=== PATIENT | male | born 1965 | race Caucasian/White ===

== ENCOUNTER 2019-03-26 05:02 | Observation (INO) ==
--- NOTE | 2019-02-22 08:29 | PAT Medication Instructions ---
Medication Instructions Date of Service February 22, 2019 Home Medications acetaminophen [Tylenol Extra Strength] 1,000 mg PO QID PRN cholecalciferol (vitamin D3) [Vitamin D3] 5,000 unit PO QAM duloxetine 60 mg PO QAM multivitamin 1 tab PO QAM naproxen sodium [Aleve] 440 mg PO BID PRN tramadol 50 - 100 mg PO Q4H PRN ASK your surgeon for instructions naproxen sodium [Aleve] 440 mg PO BID PRN DO NOT take the morning of surgery cholecalciferol (vitamin D3) [Vitamin D3] 5,000 unit PO QAM multivitamin 1 tab PO QAM Take morning of surgery With a small sip of water, OTHERWISE NOTHING TO EAT OR DRINK AFTER MIDNIGHT: acetaminophen [Tylenol Extra Strength] 1,000 mg PO QID PRN (okay to take up to 4 hours prior to surgery if needed) duloxetine 60 mg PO QAM tramadol 50 - 100 mg PO Q4H PRN (okay to take up to 4 hours prior to surgery if needed) Take evening before surgery acetaminophen [Tylenol Extra Strength] 1,000 mg PO QID PRN (if needed) tramadol 50 - 100 mg PO Q4H PRN (if needed) Other Notes If you have any questions please call us at [phone] or [phone] or [phone] or [phone]
--- NOTE | 2019-02-22 10:58 | Anesthesiology Consultation ---
Date of Service February 22, 2019 Assessment & Plan (1) Encounter for pre-operative examination: Heavy ETOH use: *Typically 4 beers/day a few times a week but does rarely have days in which patient will drink 12 beers/day (also has occasional days where he states he has no ETOH). Rare morning drinking; typically afternoon/evening drinking. Patient states that he will have no issue with being NPO/no ETOH use AM DOS* Chart Review Chart Review: Acceptable Risk for Surgery and Patient seen in Pre Admission Testing Teaching & Discussion Pre-Anesthesia Teaching/Discussion Notes: Instructed NPO after midnight before surgery,except medications with 15 cc of water. Medication instructions provided according to the PAT guidelines. History Surgery Operation Date: 03/26/19 07:00 Proposed Procedures p Left Anterior Total Hip Arthroplasty - Jake Lacy DO Height/Weight Height: 5 ft 11 in Weight: 126 kg Allergies Allergy/AdvReac Type Severity Reaction Status Date / Time No Known Allergies Verified 02/19/19 15:41 Medications Home Medications Medication Instructions Recorded Confirmed Last Taken acetaminophen [Tylenol Extra 1,000 mg PO QID PRN 02/19/19 02/22/19 Unknown Strength] cholecalciferol (vitamin D3) 5,000 unit PO QAM 02/19/19 02/22/19 Unknown [Vitamin D3] duloxetine 60 mg PO QAM 02/19/19 02/22/19 Unknown multivitamin 1 tab PO QAM 02/19/19 02/22/19 Unknown naproxen sodium [Aleve] 440 mg PO BID PRN 02/19/19 02/22/19 Unknown tramadol 50 - 100 mg PO Q4H PRN 02/19/19 02/22/19 Unknown tramadol 50 mg tablet 50 mg PO Q6H PRN #40 tab 02/22/19 02/22/19 Unknown Past Medical History Medical History Obesity Osteoarthritis Peripheral neuropathy reason for duloxetine per patient Sleep apnea CPAP HS Exercise / Class Metabolic Activity II 4-5 Yardwork/Stairs/Walk up hill (one flight of stairs (no chest pain/no sob)) Past Family History Family History Grandmother (Paternal) Family history of diabetes mellitus Grandmother (Maternal) Family history of diabetes mellitus Uncle Family hx of colon cancer Uncle Family hx of colon cancer Past Surgical History Surgical History History of back surgery LUMBAR AREA History of colonoscopy X 2 History of esophagogastroduodenoscopy (EGD) History of tooth extraction WISDOM TEETH History of undescended testicle S/P SURGICAL REPAIR Past Anesthesia History No Hx of Anesthesia Complications and No Family Hx of Anesthesia Complications History of PONV No Hx of PONV and No Hx of Motion Sickness Social History Smoking Status: Never smoker tobacco type: smokeless tobacco Do You Dip or Chew Tobacco: Yes (1 POUCH PER 2-3 DAYS X 20 YRS/ ADVISED NPO AM DOS ) Hx Alcohol Use: Yes Alcohol type: beer alcohol intake frequency: a few times a week (*Typically 4 beers/day a few times/week but does rarely have days in which patient will drink 12 beers/day. Rare morning drinking;typically afternoon/evening drinking*) Hx Substance Use: No Review of Systems Patient denies chest pain, shortness of breath, dyspnea on exertion, reflux, c ough, wheezing, palpitations. Physical Exam Vital Signs VITALS BP 133/86 P 74 TEMP 98.9 SP02 97%RA RESP 16 PHYSICAL Full neck and c-spine range of motion. Full TMJ range of motion. TMD 4 finger breaths Mallampati Score 2 Dentition: intact, several crowns on molars Lungs: clear throughout to auscultation Cardiac: regular rate and rhythm, no murmurs noted Spine: normal Carotid arteries: negative bruit Extremities: no edema Short neck. Testing Laboratory Results 02/22/19 11:25 02/22/19 11:25 PT 10.9 Seconds (9.0-12.0) 02/22/19 11:25 INR 1.1 (0.9-1.1) 02/22/19 11:25 APTT 25.7 Seconds (21.0-31.0) 02/22/19 11:25 Blood Type A Positive 02/22/19 11:25 Antibody Screen NEGATIVE 02/22/19 11:25 Electrocardiogram Date: 02/22/19 Findings: + NSR @ (73) Chest X-Ray Date: 02/22/19 Findings: + NAD
--- NOTE | 2019-02-22 12:04 | XRay Report ---
XR chest Pre-admission PA/Lat CLINICAL HISTORY: Preoperative evaluation. COMPARISON STUDY: No previous studies for comparison. FINDINGS: Lung volumes are normal. Lungs are clear. There is no pneumothorax or pleural effusion. Car diac size is normal. Mediastinal contours are normal. There is no evidence for pulmonary edema. IMPRESSION: No acute cardiopulmonary findings. Electronically signed by: Cornelio Hogan M.D. 02/22/2019 12:03 PM
[2019-02-22 13:26] LABS: Basophils # (auto) 0.02 K/uL (0-0.2); Basophils % (auto) 0.4 %; Eosinophils # (auto) 0.07 K/uL (0-0.5); Eosinophils % (auto) 1.2 %; Hematocrit (blood only) 43.7 % (42-52); Immature Granulocytes # (auto) 0.01 K/uL (0.00-0.02); Immature Granulocytes % (auto) 0.2 %; Lymphocytes # (auto) 1.77 K/uL (1.2-3.4); Lymphocytes % (auto) 31.1 %; Mean Corpuscular Hemoglobin 30.7 pg (25-34); Mean Corpuscular Hgb Conc 34.3 g/dL (32-36); Mean Corpuscular Volume 89.5 fL (80-100); Mean Platelet Volume 11.5 fL (7.4-10.4); Monocytes # (auto) 0.42 K/uL (0.11-0.59); Monocytes % (auto) 7.4 %; Neutrophils # (auto) 3.41 K/uL (1.4-6.5); Neutrophils % (auto) 59.7 %; Platelet Count 212 K/uL (130-400); RDW Coefficient of Variation 12.9 % (11.5-14.5); RDW Standard Deviation 42.4 fL (36.4-46.3); Red Blood Count 4.88 M/uL (4.7-6.1)
[2019-02-22 13:38] LABS: BUN Creatinine Ratio 17.4 (10-20); Calcium 9.6 mg/dl (8.5-10.1); Creatinine Clr Calc Pharmacy 128.4 ml/min; Est GFR (African American) 111.2; Potassium 4.3 mmol/L (3.5-5.1)
[2019-02-22 13:40] LABS: INR 1.1 (0.9-1.1); Partial Thromboplastin Ratio 0.9; Partial Thromboplastin Time 25.7 Seconds (21.0-31.0); Prothrombin Time 10.9 Seconds (9.0-12.0)
--- NOTE | 2019-03-25 16:13 | History & Physical Report ---
Date of Service March 25, 2019 Assessment & Plan (1) Avascular necrosis of bone of left hip: We will proceed with a left anterior total hip arthroplasty. Postoperatively he will be placed on aspirin for DVT prophylaxis. He will be kept overnight in the hospital for postoperative medical management. He plans to use [facility] in [place] upon discharge. Present on Admission?: Yes History of Present Illness Chief Complaint: Avascular necrosis of the left hip Primary Care Provider: Patricia Torres is a pleasant 53-year-old male who has been dealing with chronic increasing left hip and groin pain. MRI and clinical examination have been diagnostic for avascular necrosis of the left hip. After failing conservative treatment, he has elected to proceed with a left anterior total hip arthroplasty. Allergies Allergy/AdvReac Type Severity Reaction Status Date / Time No Known Allergies Verified 02/19/19 15:41 Home Medications Home Medications Medication Instructions Recorded Confirmed Type acetaminophen [Tylenol Extra 1,000 mg PO QID PRN 02/19/19 02/22/19 History Strength] cholecalciferol (vitamin D3) 5,000 unit PO QAM 02/19/19 02/22/19 History [Vitamin D3] duloxetine 60 mg PO QAM 02/19/19 02/22/19 History multivitamin 1 tab PO QAM 02/19/19 02/22/19 History naproxen sodium [Aleve] 440 mg PO BID PRN 02/19/19 02/22/19 History tramadol 50 - 100 mg PO Q4H PRN 02/19/19 02/22/19 History tramadol 50 mg tablet 50 mg PO Q6H PRN #40 tab 02/22/19 02/22/19 Rx tramadol 50 mg tablet 50 mg PO Q6H PRN #60 tab 03/16/19 Rx Past Med/Surg History Medical History Obesity Osteoarthritis Peripheral neuropathy reason for duloxetine per patient Sleep apnea CPAP HS Surgical History History of back surgery LUMBAR AREA History of colonoscopy X 2 History of esophagogastroduodenoscopy (EGD) History of tooth extraction WISDOM TEETH History of undescended testicle S/P SURGICAL REPAIR Family History Family history of diabetes mellitus Grandmother (Maternal) Family history of diabetes mellitus Uncle Family hx of colon cancer Uncle Family hx of colon cancer Social History Preferred Language: Tanzanian Communication Ability: Effective 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 Beliefs That Will Affect Care: None Current Living Situation: Spouse and Family Feels Safe at Home: Yes Smoking Status: Never smoker Tobacco Type: smokeless tobacco ; Second Hand Exposure: No ; Hx Alcohol Use: Yes Alcohol type: beer Hx Substance Use: No Review of Systems All systems reviewed & are unremarkable except as noted in HPI & below Physical Exam Constitutional: WD/WN, vitals as above Eyes: PERRL, conjunctivae normal, anicteric sclerae ENMT: external ear and nose normal, oropharynx normal Neck: trachea midline, no thyromegaly Respiratory: normal respiratory effort Cardiovascular: RRR, no murmur, no edema Gastrointestinal (Abdomen): normal bowel sounds, soft, nontender, no hepatosplenomegaly Musculoskeletal: Physical examination of the left hip reveals decreased range of motion with flexion, internal and external rotation. There is significant groin pain with forced internal rotation of the hip his leg lengths are essentially equal. Psychiatric: A+Ox3, euthymic affect Results & Data Diagnostic Findings MRI of the left hip shows mild arthritis but large area of avascular necrosis.
[2019-03-26] MEDS ORDERED: TRANEXAMIC ACID 1,000 MG **IV Pre-op IV SCH (06:00)
[2019-03-26] MEDS ORDERED: TRANEXAMIC ACID 1,000 MG **IV Intra-op IV SCH (06:00)
[2019-03-26] MEDS ORDERED: ROPIVACAINE 0.5% HCL/PF 150 MG, BUPIVACAINE 0.5% MPF 30 ML, EPINEPHrine 30MG/30ML (OR U... INSTIL SCH (06:00)
[2019-03-26] MEDS ORDERED: LR 500ML BOLUS, THEN 15ML/HR IV SCH (06:00)
[2019-03-26] MEDS ORDERED: ACETAMINOPHEN 500 MG TAB PO SCH (06:00)
[2019-03-26] MEDS ORDERED: LR 60ML/HR IV SCH (06:00)
[2019-03-26] MEDS ORDERED: CEFAZOLIN 3000MG 72.5 ML IV SCH (06:00)
[2019-03-26] MEDS ORDERED: GABAPENTIN 900 MG DOSE PO SCH (06:00)
[2019-03-26] MEDS ORDERED: dexAMETHasone 4 MG TAB PO SCH (06:00)
[2019-03-26] MEDS ORDERED: FAMOTIDINE 20 MG TAB PO SCH (06:00)
[2019-03-26] MEDS ORDERED: ORTHO JOINT ANESTHETIC ONE (06:27)
[2019-03-26] MEDS ORDERED: BUPIVACAINE 0.5 % 5 MG/1 ML PF 10ML VIAL ONE (06:28)
[2019-03-26] MEDS ORDERED: fentaNYL citrate 100 MCG/2 ML VIAL ONE (06:37)
[2019-03-26] MEDS ORDERED: MIDAZOLAM HCL 1 MG/ML 2ML VIAL ONE ×2 (06:37)
--- NOTE | 2019-03-26 06:44 | History & Physical Bridge Note ---
Date of Service March 26, 2019 History & Physical Bridge Note I have examined the patient, reviewed the History & Physical and in the interval since the performance of the History & Physical I have noted the following changes of clinical significance: no changes noted
[2019-03-26] MEDS ORDERED: fentaNYL citrate 100 MCG/2 ML VIAL IV PRN (07:14)
[2019-03-26] MEDS ORDERED: ONDANSETRON INJ 2 MG/ML 2 ML VIAL IV PRN ×2 (07:14→10:43)
[2019-03-26] MEDS ORDERED: PHENYLEPHRINE 100MCG/ML 5ML SYR IV PRN (07:14)
[2019-03-26] MEDS ORDERED: ATROPINE SULFATE 0.1 MG/ML 10ML SYR IV PRN (07:14)
[2019-03-26] MEDS ORDERED: MEPERIDINE HCL 25 MG/ML CARP IV PRN (07:14)
[2019-03-26] MEDS ORDERED: LABETALOL HCL IV 5 MG/ML 20ML IV PRN (07:14)
[2019-03-26] MEDS ORDERED: ePHEDrine sulfate 50 MG/ML AMP IV PRN (07:14)
[2019-03-26] MEDS ORDERED: HYDROmorphone INJ 2 MG/ML SYR/VIAL IV PRN (07:22)
--- NOTE | 2019-03-26 08:36 | Operative Report ---
PG Post Operative Report Pre & Post Diagnosis Operation Date: 03/26/19 07:00 Pre-Op Diagnosis: Left Hip avascular necrosis Post-Op Diagnosis: Left Hip avascular necrosis I identified the patient and participated in the time-out.: Yes Procedure Operation Date: 03/26/19 07:00 Actual Procedures p Left Anterior Total Hip Arthroplasty, Uncemented(Left) - Jake Lacy DO Surgeon Jake Lacy DO Drafter Mechanical Jake Lopez PAC Estimated Blood Loss 400 Findings Consistent with Post-Op Diagnosis Specimens Left femoral head Complications none Disposition Disposition: Recovery Room Indications 80 is a pleasant 53-year-old male who presented my office with increasing left hip pain. MRI and clinical examination were diagnostic for avascular necrosis of the left hip. After failing conservative treatment, he elected proceed with a left total hip arthroplasty. Description of Procedure Implants used Biomet Taperloc total hip arthroplasty system with a size 13 standard offset Taperloc stem, a 50 mm G7 cup with a 25mm screw, an E1 polyethylene liner, a 36 mm ceramic head with a +0 neck. Patient arrived at the hospital for the above procedure. They were seen in the preoperative holding area and the operative extremity was identified and signed. They were given a spinal anesthetic. They were given a preoperative antibiotic and TXA. They were taken back To the operating room and laid on the table in the supine position. The leg was brought out through a Puristst leg positioner. The hip was then prepped and draped in sterile fashion. A timeout was done and the patient and the operative extremity was properly identified. An anterior approach was used. Dissection was taken down through the fascia and the tensor muscle belly was retracted laterally and the rectus was retracted medially. The circumflex vessels were identified and ligated. The capsule was then incised and tagged for later repair. The femoral neck was then cut and the femoral head was removed. The acetabulum was exposed. Time was spent doing a complete circumferential labral release. Sequential reaming of the acetabulum up to a size 49 reamer was done. Final reamings were done under fluoroscopy to ensure appropriate version. A Biomet 50 mm G7 cup was then impacted into place. A single 25 mm screw was placed. The E1 polyethylene liner was then snapped into place. Surrounding soft tissues were then injected with 100 cc of an orthopedic pain control cocktail. The proximal femur was then exposed. Sequential broaching up to a size 13 broach was done. Off that broach a size 36 head with a 0 neck was trialed. The hip was reduced and fluoroscopic images showed anatomic alignment of the implants in acceptable length. The broach was removed. The final size 13 standard offset Taperloc stem was then impacted into place. A ceramic 36 mm head with a +0 neck was then impacted into place in the hip was reduced. Final fluoroscopic images showed anatomic reduction of the hip. The capsule was then closed with #1 Vicryl suture. A dilute betadyne lavage was then done for 3 minutes. The joint was then irrigated with normal saline solution. The fascia was closed with #1 PDS suture. Skin was closed with 2-0 Vicryl, ronald, and a Emily VAC dressing. The patient was then transferred to a hospital bed and taken to the post anesthesia care unit in stable condition. They tolerated the procedure well. I attest to the content of the Intraoperative Record and any orders documented therein. Any exceptions are noted below.
[2019-03-26] MEDS ORDERED: PROPOFOL IV EMULSION 10 MG/ML 20 ML VIAL IV ONE (08:40)
--- NOTE | 2019-03-26 09:01 | Fluoroscopy Report ---
FL hip LT 1V CLINICAL HISTORY: LEFT ANTERIOR HIP COMPARISON STUDY: None FLUOROSCOPY TIME: 37 seconds NUMBER OF FLUOROSCOPIC IMAGES: 2 FINDINGS: Image intensifier utilization for a left anterior total hip arthroplasty. IMPRESSION: Left anterior total hip arthroplasty. ACT 112: Negative or not required by law. The above report was generated using voice recognition software. It may contain grammatical, syntax or spelling errors. Electronically signed by: Juan Luis Pace M.D. 03/26/2019 9:00 AM
--- NOTE | 2019-03-26 09:48 | XRay Report ---
XR hip 1V LT w pelvis CLINICAL HISTORY: IN PACU - A/P PELVIS and LATERAL HIP pain COMPARISON: None. DISCUSSION: Anatomic alignment posttotal left hip arthroplasty. Could contact between prosthetic and underlying bone. No evidence for acetabular protrusion. Expected postoperative soft tissue change IMPRESSION: Anatomic alignment posttotal left hip arthroplasty. ACT 112: Negative or not required by law. The above report was generated using voice recognition software. It may contain grammatical, syntax or spelling errors. Electronically signed by: Juan Luis Pace M.D. 03/26/2019 9:46 AM
--- NOTE | 2019-03-26 10:14 | Anesthesiology Progress Note ---
Date of Service March 26, 2019 Anesthesia Post Procedure Vital Signs Vital Signs: Temp Pulse Pulse Resp BP Pulse Ox 03/26/19 10:10 36.4 C L 64 14 155/75 H 97 03/26/19 10:00 63 14 144/88 H 96 03/26/19 09:50 69 12 123/88 96 03/26/19 09:40 70 14 168/90 H 100 03/26/19 09:30 67 14 139/91 96 03/26/19 09:20 69 18 161/87 H 94 03/26/19 09:13 36.6 C 69 18 168/76 H 99 03/26/19 05:45 36.9 C 77 18 153/90 H 98 Pain Intensity Left Hip: Pain Intensity: 1 Transfer of Care Handoff Completed per policy Notes Mental Status: alert / awake / arousable Patient Amnestic to Procedure: Yes Nausea / Vomiting: adequately controlled Pain: adequately controlled Airway Patency, RR, SpO2: stable & adequate BP & HR: stable & adequate Hydration State: stable & adequate Neuraxial Anesthesia: was administered and sensory block is resolving Anesthetic Complications: no major complications apparent and Pt Satisfied with anesthetic care
[2019-03-26] MEDS ORDERED: NALOXONE HCL 0.4 MG/1 ML VIAL/CARP IV PRN (10:43)
[2019-03-26] MEDS ORDERED: METOCLOPRAMIDE HCL INJ 5 MG/ML 2 ML VIAL IV PRN (10:43)
[2019-03-26] MEDS ORDERED: bisacodyL 10 MG SUPP PR PRN (10:43)
[2019-03-26] MEDS ORDERED: HYDROmorphone INJ 0.5 MG/0.5 ML SYR IV PRN (10:43)
[2019-03-26] MEDS ORDERED: MAGNESIUM HYDROXIDE SUSP 30 ML UDC PO PRN (10:43)
[2019-03-26] MEDS ORDERED: LORazepam 0.5 MG TAB PO PRN (10:43)
[2019-03-26] MEDS ORDERED: INFLUENZA Vaccine HIGH DOSE 65+yrs 0.5 mL Syr IM ONE (11:00)
[2019-03-26] MEDS: KETOROLAC 30 MG/ML VIAL IV SCH ×3 (11:33→23:29)
[2019-03-26] MEDS: SODIUM CHLORIDE 0.9% 1000ML 1,000 ML IV SCH ×2 (12:03→17:37)
[2019-03-26] MEDS: ACETAMINOPHEN 500 MG TAB PO SCH ×3 (13:06→21:12)
[2019-03-26] MEDS: CEFAZOLIN 2000MG 2,000 MG/15 ML SYR IV SCH ×2 (13:06→21:17)
[2019-03-26] MEDS ORDERED: SENNA 8.6 MG TAB PO SCH (21:00)
[2019-03-26] MEDS: DOCUSATE SODIUM 100 MG CAP PO SCH (21:11)
[2019-03-26] MEDS: ASPIRIN 81 MG ECTAB PO SCH (21:11)
[2019-03-27 05:28] LABS: Hematocrit (blood only) 34.9 % (42-52); Hemoglobin 12.3 g/dL (14.0-18.0); Immature Granulocytes # (auto) 0.03 K/uL (0.00-0.02); Immature Granulocytes % (auto) 0.3 %; Lymphocytes # (auto) 1.22 K/uL (1.2-3.4); Lymphocytes % (auto) 10.9 %; Mean Corpuscular Hemoglobin 30.5 pg (25-34); Mean Corpuscular Hgb Conc 35.2 g/dL (32-36); Mean Corpuscular Volume 86.6 fL (80-100); Mean Platelet Volume 10.6 fL (7.4-10.4); Monocytes # (auto) 1.12 K/uL (0.11-0.59); Neutrophils % (auto) 78.8 %; Platelet Count 183 K/uL (130-400); RDW Coefficient of Variation 12.8 % (11.5-14.5); RDW Standard Deviation 40.8 fL (36.4-46.3); Red Blood Count 4.03 M/uL (4.7-6.1); White Blood Count 11.17 K/uL (4.8-10.8)
[2019-03-27 05:44] LABS: BUN Creatinine Ratio 21.7 (10-20); Est GFR (African American) 123.1; Est GFR (Non-African American) 106.2; Potassium 4.2 mmol/L (3.5-5.1)
[2019-03-27] MEDS: KETOROLAC 30 MG/ML VIAL IV SCH ×2 (05:45→11:07)
[2019-03-27] MEDS: ACETAMINOPHEN 500 MG TAB PO SCH (05:45)
[2019-03-27] MEDS: OXYCODONE HCL IR 5 MG TAB (IMMEDIATE RELEASE) PO PRN ×2 (06:07→11:07)
[2019-03-27] MEDS ORDERED: dexAMETHasone 4 MG TAB PO SCH (08:00)
[2019-03-27] MEDS: DOCUSATE SODIUM 100 MG CAP PO SCH (08:39)
[2019-03-27] MEDS: ASPIRIN 81 MG ECTAB PO SCH (08:39)
[2019-03-27] MEDS ORDERED: DULOXETINE HCL 60 MG CAP PO SCH (09:00)
[2019-03-27] MEDS ORDERED: MULTIVITAMIN TAB PO SCH (09:00)
--- NOTE | 2019-03-27 09:16 | Orthopedic Progress Note ---
Date of Service March 27, 2019 Assessment & Plan (1) History of left hip replacement: Overall he is doing very well. He is not having too much pain in the left hip. He will be seen by physical therapy this morning for ambulation and range of motion exercises. He can be discharged home later today. He will follow-up with orthopedics in 2 weeks. Present on Admission?: Yes Subjective Ed was seen and examined at bedside this morning. Overall is doing very well. He is not having too much pain in the hip. He has already been ambulating to the bathroom. He has no complaints. Physical Exam Musculoskeletal: Physical examination of the left hip, the Emily VAC dressing is to suction. His leg lengths are equal. He has active dorsiflexion and plantarflexion of his left ankle. Results & Data Vital Signs (Past 12 Hours) Vital Signs Temp Pulse Resp BP Pulse Ox 03/27/19 06:21 36.4 C L 69 18 136/78 97 03/27/19 03:51 36.7 C 78 18 130/78 97 03/26/19 23:08 37.0 C 86 18 144/83 H 97 Laboratory Results H & H 02/22/19 03/27/19 Range/Units 11:25 05:10 Hgb 15.0 12.3 L (14.0-18.0) g/dL Hct 43.7 34.9 L (42-52) % Coagulation 02/22/19 Range/Units 11:25 INR 1.1 (0.9-1.1) Diagnostic Findings Postoperative x-rays of the left hip show the prosthesis to be in anatomic alignment without any evidence of fracture, dislocation, or loosening. PG Care Time/CCT Total # of Minutes Spent Total Time Spent with Patient: Total time spent is greater than 50% in coordination of care (as documented) at patient's floor/unit and/or counseling patient: Coding Level of Care Code None Diagnoses History of left hip replacement Z96.642
--- NOTE | 2019-03-27 09:20 | Discharge Summary ---
Date of Service March 27, 2019 Admission HPI Per Admitting Provider Brian is a pleasant 53-year-old male who has been dealing with chronic increasing left hip and groin pain. MRI and clinical examination have been diagnostic for avascular necrosis of the left hip. After failing conservative treatment, he has elected to proceed with a left anterior total hip arthroplasty. Principal Diagnosis Left total hip arthroplasty Discharge Data Allergies Allergy/AdvReac Type Severity Reaction Status Date / Time No Known Allergies Verified 03/26/19 05:41 Consultations 03/27/19 08:00 Consult Case Management - Discharge Planning Routine Procedures Performed Operation Date: 03/26/19 07:00 Actual Procedures p Left Anterior Total Hip Arthroplasty, Uncemented(Left) - Jake Lacy, Ordered Studies 03/26/19 07:00 FL fluoroscopy <1hr Routine FL hip LT 1V Routine Hospital Course (1) History of left hip replacement: On March 26, 2019 Ed arrived at [facility] and underwent a left anterior total hip arthroplasty without complication. He had a spinal anesthetic. Postoperatively he was started on aspirin for DVT prophylaxis and discharged to the general orthopedic floors. His hospital course was uneventful. On postop day #1 his H&H was stable and his pain was well controlled. He was able to participate well with physical therapy doing ambulation and range of motion exercises. He was then discharged to home. He will follow-up with orthopedics in 2 weeks. Total Time Total Time Spent Total Time Spent (In Minutes): 20 Discharge Plan Discharge Items Reason For Visit: Left Hip Degenerative Joint Disease Discharge Diagnosis: Left total hip arthroplasty Activity: As commented below Non-emergency contact: Surgeon Call non-emergency contact if: your wound has increased redness and your wound has increased drainage Follow-up/Referrals: Patricia Jade D.O. [Primary Care Provider] - Diet: Regular Addtl Attending Provider Instructions: Activity and Therapy Recommendations: * If you are using [facility] then therapy will be provided at your home until they feel you have accomplished all of your goals. * If you are using [facility] then Physical Therapy will be provided until they feel you are ready to start Outpatient Physical Therapy. * If you are not using home therapy then Outpatient Physical Therapy should start about 3-5 days from your day of surgery. Therapy will last about 6-10 weeks * You were shown a series of exercises in the hospital. Do these exercises three times each day including the exercises you were shown in physical therapy. * Get up and walk several times each day.~ For the first four weeks, try not to stand or walk for more than one hour at a time. If you do stand or walk for more than one hour, you will not hurt anything, but your leg will likely swell.~~ * As you feel comfortable, you may change from the walker or crutches to a cane and~then to independent walking. Medications: * Narcotic You will likely be sent home from the hospital with a prescription for the narcotic pain medication that worked best throughout your stay. * Aspirin Most patients will be required to take Aspirin 81mg twice a day for 6 weeks after surgery. This is obtained [id number] and a prescription is not necessary. * Other medications may be prescribed for specific circumstances. If you have any questions, please call the office at . * Resume previous home medications unless otherwise instructed TEDs/Elastic Stockings: The white elastic stockings help limit swelling and prevent blood clots from forming in your legs. The more you wear them, the more they work. Wear them for six weeks. Dressing Care: You will likely have a purple VAC dressing after surgery. This dressing will keep the incision dry and promote early healing. After about 7 days the batteries will wear out and the VAC will lose suction. Simply remove the dressing at that time and throw everything away, including the small suction machine. Then, you may leave the ronald open to air or cover them with a dry dressing so they do not rub on your pants. The ronald will be removed at your 2 week follow-up appointment. Showering: You may shower immediately with the purple VAC dressing. Let the shower spray hit your opposite side and slowly pat the plastic dry. Do not soak the dressing. After the dressing is removed you may shower normally with the ronald exposed. Let soapy water run over the ronald and pat them dry. Things To Watch For: * Drainage from the incision site that occurs more than one week after your surgery. * Increased redness at the incision site. * Fever above 102 degrees Fahrenheit. * Unusual chest pain or shortness of breath. * Call [facility] at with any of the above problems Follow-Up Visit: Follow-up with Dr. Lacy 2-3 weeks after your day of surgery. An appointment was probably scheduled when you signed-up for surgery in the office. If you have any questions call Office Instructions: More detailed instructions as well as Frequently Asked Questions were provided in a folder by our office when you signed-up for surgery. Please review these instructions when you get home. If you have any further questions or concerns, please feel free to call the office at [phone] Pending Studies at Discharge: No Stand-Alone Forms: [facility] [place] Sm[facility] Cessation Medications and DC Order Prescriptions: New oxycodone 5 mg Tablet 5 mg PO Q4H PRN (Reason: pain) Qty: 30 RF: 0 aspirin [Ecotrin Low Strength] 81 mg Tablet,Delayed Release (Dr/Ec) 81 mg PO BID 42 Days Qty: 0 RF: 0 Continued multivitamin Tablet 1 tab PO QAM RF: 0 acetaminophen [Tylenol Extra Strength] 500 mg Tablet 1,000 mg PO QID PRN (Reason: Pain) RF: 0 duloxetine 60 mg Capsule,Delayed Release(Dr/Ec) 60 mg PO QAM RF: 0 cholecalciferol (vitamin D3) [Vitamin D3] 1,000 unit Tablet,Chewable 5,000 unit PO QAM RF: 0 naproxen sodium [Aleve] 220 mg Capsule 440 mg PO BID PRN (Reason: Pain) RF: 0 Discontinued tramadol 50 mg tablet 50 - 100 mg PO Q4H PRN (Reason: Pain) RF: 0 Admission Data Admit Date/Time: 03/26/19 09:17 Attending Provider: Jake Lacy Admit Provider: Jake Lacy Primary Care Provider: Patricia Jade Coding Level of Care Code D/C Day Management <30 mins Diagnoses History of left hip replacement Z96.642
== END 2019-03-27 12:35 | disposition home or self-care (01) ==
LOC: ASU 05:02 → 3E 09:17 → INTOOBSV 09:17

== ENCOUNTER 2019-05-14 05:07 | Observation (INO) ==
--- NOTE | 2019-04-08 15:46 | PAT Medication Instructions ---
Medication Instructions Date of Service April 08, 2019 Home Medications Medication Instructions Recorded aspirin [Ecotrin Low Strength] 81 mg PO BID 42 Days #0 tab 03/27/19 oxycodone 5 mg PO Q4H PRN #30 tab 03/27/19 acetaminophen [Tylenol Extra Strength] 1,000 mg PO QID PRN cholecalciferol (vitamin D3) [Vitamin D3] 5,000 unit PO QAM duloxetine 60 mg PO QAM multivitamin 1 tab PO QAM naproxen sodium [Aleve] 440 mg PO BID PRN aspirin [Ecotrin Low Strength] 81 mg PO BID oxycodone 5 mg PO Q4H PRN ASK your surgeon for instructions naproxen sodium [Aleve] 440 mg PO BID PRN ASK your prescriber and surgeon aspirin [Ecotrin Low Strength] 81 mg PO BID DO NOT take the morning of surgery cholecalciferol (vitamin D3) [Vitamin D3] 5,000 unit PO QAM multivitamin 1 tab PO QAM Take morning of surgery With a small sip of water, OTHERWISE NOTHING TO EAT OR DRINK AFTER MIDNIGHT: acetaminophen [Tylenol Extra Strength] 1,000 mg PO QID PRN (okay to take up to 4 hours prior to surgery if needed) duloxetine 60 mg PO QAM oxycodone 5 mg PO Q4H PRN (okay to take up to 4 hours prior to surgery if needed) Take evening before surgery acetaminophen [Tylenol Extra Strength] 1,000 mg PO QID PRN (if needed) oxycodone 5 mg PO Q4H PRN (if needed) Other Notes If you have any questions please call us at [phone] or [phone] or [phone] or [phone]
--- NOTE | 2019-04-12 13:37 | Anesthesiology Consultation ---
Date of Service April 12, 2019 Assessment & Plan (1) Encounter for pre-operative examination: Chart Review Chart Review: Acceptable Risk for Surgery and Patient seen in Pre Admission Testing Left PAWEL 03/26/19= anesthesia record- SAB with MAC- L3/4- 1 attempt Teaching & Discussion Pre-Anesthesia Teaching/Discussion Notes: Instructed NPO after midnight before surgery,except medications with 15 cc of water. Medication instructions provided according to the PAT guidelines. History Surgery Operation Date: 05/14/19 11:55 Proposed Procedures p Right Anterior Total Hip Arthroplasty - Jake Lacy DO Height/Weight Height: 5 ft 11 in Weight: 126.6 kg Allergies Allergy/AdvReac Type Severity Reaction Status Date / Time No Known Allergies Verified 04/12/19 12:20 Medications Home Medications Medication Instructions Recorded Confirmed Last Taken acetaminophen [Tylenol Extra 1,000 mg PO QID PRN 02/19/19 04/12/19 03/25/19 18:00 Strength] cholecalciferol (vitamin D3) 5,000 unit PO QAM 02/19/19 04/12/19 03/25/19 06:00 [Vitamin D3] duloxetine 60 mg PO QAM 02/19/19 04/12/19 03/26/19 03:00 multivitamin 1 tab PO QAM 02/19/19 04/12/19 03/25/19 06:00 naproxen sodium [Aleve] 440 mg PO BID PRN 02/19/19 04/12/19 03/19/19 21:00 aspirin [Ecotrin Low Strength] 81 mg PO BID 42 Days #0 tab 03/27/19 04/12/19 Unknown oxycodone 5 mg PO Q4H PRN #30 tab 03/27/19 04/12/19 Unknown Past Medical History Medical History Obesity Osteoarthritis Peripheral neuropathy reason for duloxetine per patient Sleep apnea CPAP HS Exercise / Class Metabolic Activity II 4-5 Yardwork/Stairs/Walk up hill (one flight of stairs - no chest pain or SOB ) Past Family History Family History Grandmother (Paternal) Family history of diabetes mellitus Grandmother (Maternal) Family history of diabetes mellitus Uncle Family hx of colon cancer Uncle Family hx of colon cancer Past Surgical History Surgical History History of back surgery LUMBAR AREA History of colonoscopy X2 History of esophagogastroduodenoscopy (EGD) History of left hip replacement (~03/2019) Left PAWEL: 03/26/19: SAB x1 at L3-L4 at [facility] History of tooth extraction WISDOM TEETH History of undescended testicle S/P SURGICAL REPAIR Past Anesthesia History No Hx of Anesthesia Complications and No Family Hx of Anesthesia Complications History of PONV No Hx of Motion Sickness and History of PONV (s/p WTE- done under [place] over 30 yrs ago- no issues with recent surgeries) Social History Smoking Status: Never smoker tobacco type: smokeless tobacco Do You Dip or Chew Tobacco: Yes (1 pouch/3 days x 20 years (advised not to chew AM of surgery)) Hx Alcohol Use: Yes Alcohol type: beer alcohol intake frequency: a few times a week Hx Substance Use: No (uses RX oxycodone daily PRN pain for recent surgery) substance use type: does not use Review of Systems Patient denies chest pain, shortness of breath, dyspnea on exertion, reflux, cough, wheezing, palpitations. Physical Exam Vital Signs VITALS BP 137/83 P 75 TEMP 98.2 SP02 97% RESP 16 Constitutional no acute distress ENMT Mouth: no TMJ abnormality Thyromental Distance: > or= 3.5 Finger Breadths Mallampati Class: II several crowns on molars Neck + thick neck (mild ); neck extension not limited Respiratory normal respiratory effort; no respiratory distress Auscultation: lungs clear to auscultation bilaterally; no wheezes Cardiovascular Rate/Rhythm: regular rate and regular rhythm Musculoskeletal Spine: no pain with cervical ROM Neurologic moves all extremities Psychiatric Orientation: alert Testing Laboratory Results 04/12/19 13:36 04/12/19 13:36 PT 11.1 Seconds (9.0-12.0) 04/12/19 13:36 INR 1.1 (0.9-1.1) 04/12/19 13:36 APTT 25.6 Seconds (21.0-31.0) 04/12/19 13:36 Blood Type A Positive 04/12/19 13:36 Antibody Screen NEGATIVE 04/12/19 13:36 Electrocardiogram Date: 02/22/19 Findings: + NSR @ (73) Chest X-Ray Date: 02/22/19 Findings: + NAD
[2019-04-12 15:01] LABS: Basophils # (auto) 0.01 K/uL (0-0.2); Basophils % (auto) 0.2 %; Eosinophils # (auto) 0.13 K/uL (0-0.5); Eosinophils % (auto) 2.2 %; Hematocrit (blood only) 38.5 % (42-52); Hemoglobin 13.1 g/dL (14.0-18.0); Lymphocytes # (auto) 1.55 K/uL (1.2-3.4); Lymphocytes % (auto) 26.7 %; Mean Corpuscular Hemoglobin 29.8 pg (25-34); Mean Corpuscular Volume 87.7 fL (80-100); Mean Platelet Volume 10.6 fL (7.4-10.4); Monocytes # (auto) 0.45 K/uL (0.11-0.59); Monocytes % (auto) 7.8 %; Neutrophils # (auto) 3.66 K/uL (1.4-6.5); Neutrophils % (auto) 63.1 %; Platelet Count 245 K/uL (130-400); RDW Coefficient of Variation 13.4 % (11.5-14.5); RDW Standard Deviation 42.8 fL (36.4-46.3); Red Blood Count 4.39 M/uL (4.7-6.1)
[2019-04-12 15:09] LABS: BUN Creatinine Ratio 18.3 (10-20); Calcium 9.2 mg/dl (8.5-10.1); Creatinine Clr Calc Pharmacy 142.7 ml/min; Est GFR (African American) 118.1; Est GFR (Non-African American) 101.9
[2019-04-12 15:15] LABS: INR 1.1 (0.9-1.1); Partial Thromboplastin Ratio 0.9; Partial Thromboplastin Time 25.6 Seconds (21.0-31.0); Prothrombin Time 11.1 Seconds (9.0-12.0)
--- NOTE | 2019-05-13 15:52 | History & Physical Report ---
Date of Service May 13, 2019 Assessment & Plan (1) Avascular necrosis of bone of right hip: We will proceed with a right anterior total hip arthroplasty. Postoperatively he will be started on aspirin for DVT prophylaxis and kept overnight in the hospital for postoperative medical management. Present on Admission?: Yes History of Present Illness Chief Complaint: Avascular necrosis of the right hip Primary Care Provider: Patricia Jade Ed is a pleasant 53-year-old male who presented my office with complaints of bilateral hip pain. 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 He underwent a left anterior total hip arthroplasty 6 weeks ago. He did well with that. He is now prepared to proceed with a right hip replacement surgery. Allergies Allergy/AdvReac Type Severity Reaction Status Date / Time No Known Allergies Verified 04/12/19 12:20 Home Medications Home Medications Medication Instructions Recorded Confirmed Type acetaminophen [Tylenol Extra 1,000 mg PO QID PRN 02/19/19 04/12/19 History Strength] cholecalciferol (vitamin D3) 5,000 unit PO QAM 02/19/19 04/12/19 History [Vitamin D3] duloxetine 60 mg PO QAM 02/19/19 04/12/19 History multivitamin 1 tab PO QAM 02/19/19 04/12/19 History naproxen sodium [Aleve] 440 mg PO BID PRN 02/19/19 04/12/19 History oxycodone 5 mg PO Q4H PRN #30 tab 03/27/19 04/12/19 Rx Past Med/Surg History Medical History Obesity Osteoarthritis Peripheral neuropathy reason for duloxetine per patient Sleep apnea CPAP HS Surgical History History of back surgery LUMBAR AREA History of colonoscopy X2 History of esophagogastroduodenoscopy (EGD) History of left hip replacement (~03/2019) Left PAWEL: 03/26/19: SAB x1 at L3-L4 at [facility] History of tooth extraction WISDOM TEETH History of undescended testicle S/P SURGICAL REPAIR Family History Grandmother (Paternal) Family history of diabetes mellitus Grandmother (Maternal) Family history of diabetes mellitus Uncle Family hx of colon cancer Uncle Family hx of colon cancer Social History Preferred Language: Sinhala Communication Ability: Effective 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 Beliefs That Will Affect Care: None marital status: Current Living Situation: Spouse and Family Feels Safe at Home: Yes Smoking Status: Never smoker Tobacco Type: smokeless tobacco ; Second Hand Exposure: No ; Hx Alcohol Use: Yes Alcohol type: beer Hx Substance Use: No (uses RX oxycodone daily PRN pain for recent surgery) Review of Systems All systems reviewed & are unremarkable except as noted in HPI & below Physical Exam Constitutional: WD/WN, vitals as above Eyes: PERRL, conjunctivae normal, anicteric sclerae ENMT: external ear and nose normal, oropharynx normal Neck: trachea midline, no thyromegaly Respiratory: normal respiratory effort Cardiovascular: RRR, no murmur, no edema Gastrointestinal (Abdomen): normal bowel sounds, soft, nontender, no hepatosplenomegaly Musculoskeletal: Physical examination of the right hip reveals decreased range of motion with flexion, internal and external rotation. There is significant groin pain with forced internal rotation of the hip his leg lengths are essentially equal. Psychiatric: A+Ox3, euthymic affect Results & Data Diagnostic Findings Radiographs of the right hip and pelvis demonstrate advanced AVN with joint space narrowing osteophyte formation and [id number] articulation.
[2019-05-14] MEDS ORDERED: TRANEXAMIC ACID 1,000 MG **IV Pre-op IV SCH (06:00)
[2019-05-14] MEDS ORDERED: GABAPENTIN 900 MG DOSE PO SCH (06:00)
[2019-05-14] MEDS ORDERED: FAMOTIDINE 20 MG TAB PO SCH (06:00)
[2019-05-14] MEDS ORDERED: LR 500ML BOLUS, THEN 15ML/HR IV SCH (06:00)
[2019-05-14] MEDS ORDERED: ROPIVACAINE 0.5% HCL/PF 150 MG, BUPIVACAINE 0.5% MPF 30 ML, EPINEPHrine 30MG/30ML (OR U... INSTIL SCH (06:00)
[2019-05-14] MEDS ORDERED: ACETAMINOPHEN 500 MG TAB PO SCH (06:00)
[2019-05-14] MEDS ORDERED: CEFAZOLIN 3000MG 72.5 ML IV SCH (06:00)
[2019-05-14] MEDS ORDERED: TRANEXAMIC ACID 1,000 MG **IV Intra-op IV SCH (06:00)
[2019-05-14] MEDS ORDERED: LR 60ML/HR IV SCH (06:00)
[2019-05-14] MEDS ORDERED: dexAMETHasone 4 MG TAB PO SCH (06:00)
[2019-05-14] MEDS ORDERED: MIDAZOLAM HCL 1 MG/ML 2ML VIAL ONE ×2 (06:28→07:27)
[2019-05-14] MEDS ORDERED: PROPOFOL IV EMULSION 10 MG/ML 20 ML VIAL IV ONE ×2 (06:28→07:17)
[2019-05-14] MEDS ORDERED: fentaNYL citrate 100 MCG/2 ML VIAL ONE (06:28)
[2019-05-14] MEDS ORDERED: LIDOCAINE HCL 2% 2 ML VIAL/AMP(20MG/ML) INFIL ONE (06:28)
[2019-05-14] MEDS ORDERED: ORTHO JOINT ANESTHETIC ONE (06:40)
[2019-05-14] MEDS ORDERED: BUPIVACAINE 0.5 % 5 MG/1 ML PF 10ML VIAL ONE (06:42)
[2019-05-14] MEDS ORDERED: ONDANSETRON INJ 2 MG/ML 2 ML VIAL IV PRN ×2 (06:45→10:19)
[2019-05-14] MEDS ORDERED: ATROPINE SULFATE 0.1 MG/ML 10ML SYR IV PRN (06:45)
[2019-05-14] MEDS ORDERED: fentaNYL citrate 100 MCG/2 ML VIAL IV PRN (06:45)
[2019-05-14] MEDS ORDERED: ePHEDrine sulfate 50 MG/ML AMP IV PRN (06:45)
--- NOTE | 2019-05-14 06:46 | History & Physical Bridge Note ---
Date of Service May 14, 2019 History & Physical Bridge Note I have examined the patient, reviewed the History & Physical and in the interval since the performance of the History & Physical I have noted the following changes of clinical significance: no changes noted
--- NOTE | 2019-05-14 08:45 | Operative Report ---
PG Post Operative Report Pre & Post Diagnosis Operation Date: 05/14/19 07:00 Pre-Op Diagnosis: Right Hip Avascular necrosis Post-Op Diagnosis: Right Hip avascular necrosis I identified the patient and participated in the time-out.: Yes Procedure Operation Date: 05/14/19 07:00 Actual Procedures p Right Anterior Total Hip Arthroplasty(Right) - Jake Lacy DO Surgeon Jake Lacy DO Mail List Processor Jake Lopez PAC Estimated Blood Loss 350 Findings Consistent with Post-Op Diagnosis Specimens Right femoral head Complications none Disposition Disposition: Recovery Room Indications Ed is a pleasant 53-year-old male who is been dealing with bilateral groin pain. 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 After failing conservative treatment, he elected to undergo total hip arthroplasties. He had his left hip done 6 weeks ago and did well with that. He has now elected to proceed with a right anterior total hip arthroplasty. Description of Procedure Implants used I used a Biomet Taperloc total hip arthroplasty system with a size 14 high offset Taperloc stem, a 50 mm G7 cup with a 25mm screw, an E1 polyethylene liner, a 36 mm ceramic head with a -3 neck. Ed arrived at the hospital for the above procedure. He was seen in the preoperative holding area and the operative extremity was identified and signed. He was given a spinal anesthetic, a preoperative antibiotic, and TXA. He was then taken back to the operating room and laid on the table in the supine position. He was given basic sedation. The operative leg was secured to a Puristst leg positioner. The hip was then prepped and draped in sterile fashion. A timeout was done and the patient and the operative extremity was properly identified. An anterior approach was used. Dissection was taken down through the fascia and the tensor muscle belly was retracted laterally and the rectus was retracted medially. The circumflex vessels were identified and ligated. The capsule was then incised and tagged for later repair. The femoral neck was then cut and the femoral head was removed. The acetabulum was exposed. Time was spent doing a complete circumferential labral release. Sequential reaming of the acetabulum up to a size 49 reamer was done. Final reamings were done under fluoroscopy to ensure appropriate version. A Biomet 50 mm G7 cup was then impacted into place. A single 25 mm screw was placed. The E1 polyethylene liner was then snapped into place. Surrounding soft tissues were then injected with 100 cc of an orthopedic pain control cocktail. The proximal femur was then exposed. Sequential broaching up to a size 14 broach was done. Off that broach a size 36 head with a -3 neck was trialed. The hip was reduced and fluoroscopic images showed anatomic alignment of the implants in acceptable length. The broach was removed. The final size 14 high offset Taperloc stem was then impacted into place. A ceramic 36 mm head with a -3 neck was then impacted onto the stem and the hip was reduced. Final fluoroscopic images showed anatomic alignment of the hip. The capsule was then closed with #1 Vicryl suture. A dilute betadyne lavage was then done for 3 minutes. The joint was then irrigated with normal saline solution. The fascia was closed with #1 PDS suture. Skin was closed with 2-0 Vicryl, ronald, and a Emily VAC dressing. He was then transferred to a hospital bed and taken to the post anesthesia care unit in stable condition. He tolerated the procedure well. Jake Lopez PA-C, was present for the entire procedure. He was critical for patient positioning, prepping, draping, retraction exposure, wound closure and application of sterile dressing. I attest to the content of the Intraoperative Record and any orders documented therein. Any exceptions are noted below.
--- NOTE | 2019-05-14 09:42 | XRay Report ---
XR hip 1V RT w pelvis CLINICAL HISTORY: IN PACU - A/P PELVIS and LATERAL HIP COMPARISON: March 26, 2019 DISCUSSION: A total left hip arthroplasty is again evident. Now evident is a total right hip arthropl asty. The acetabular and femoral components appear well seated. There is no dislocation. There are ov erlying skin ronald. IMPRESSION: Interval total right hip arthroplasty. No complicating features identified ACT 112: Negative or not required by law. Electronically signed by: Raimundo Espinosa M.D. 05/14/2019 9:40 AM
--- NOTE | 2019-05-14 09:53 | Fluoroscopy Report ---
FL hip RT 1V CLINICAL HISTORY: RIGHT ANTERIOR TOTAL HIP ARTHOPLASTY COMPARISON STUDY: Pelvis radiograph December 08, 2018. FLUOROSCOPY TIME: 29 seconds. FLUOROSCOPIC IMAGES: 2 FINDINGS: Fluoroscopy was provided during total right hip arthroplasty. The hardware appears intact. No fracture is visualized by fluoroscopy. There is an acetabular screw. IMPRESSION: Fluoroscopy provided during total right hip arthroplasty. ACT 112: Negative or not required by law. Electronically signed by: Cornelio Hogan M.D. 05/14/2019 9:52 AM
[2019-05-14] MEDS ORDERED: LORazepam 1 MG TAB PO PRN (10:19)
[2019-05-14] MEDS ORDERED: HYDROmorphone INJ 0.5 MG/0.5 ML SYR IV PRN (10:19)
[2019-05-14] MEDS ORDERED: NALOXONE HCL 0.4 MG/1 ML VIAL/CARP IV PRN (10:19)
[2019-05-14] MEDS ORDERED: SODIUM CHLORIDE 0.9% 1000ML 1,000 ML IV SCH (10:19)
[2019-05-14] MEDS ORDERED: METOCLOPRAMIDE HCL INJ 5 MG/ML 2 ML VIAL IV PRN (10:19)
[2019-05-14] MEDS ORDERED: MAGNESIUM HYDROXIDE SUSP 30 ML UDC PO PRN (10:19)
[2019-05-14] MEDS ORDERED: bisacodyL 10 MG SUPP PR PRN (10:19)
--- NOTE | 2019-05-14 10:41 | Anesthesiology Progress Note ---
Date of Service May 14, 2019 Anesthesia Post Procedure Vital Signs Vital Signs: Temp Pulse Pulse Pulse Resp BP Pulse Ox 05/14/19 10:19 36.3 C L 70 16 124/70 96 05/14/19 10:00 67 11 L 134/71 95 05/14/19 09:45 73 14 138/87 96 05/14/19 09:35 36.6 C 72 15 121/73 97 05/14/19 09:25 65 14 134/76 99 05/14/19 09:17 36.2 C L 72 16 127/77 100 05/14/19 05:43 36.8 C 78 20 142/89 H 97 Pain Intensity Right Hip: Pain Intensity: 6 Transfer of Care Handoff Completed per policy Notes Mental Status: alert / awake / arousable Patient Amnestic to Procedure: Yes Nausea / Vomiting: adequately controlled Pain: adequately controlled Airway Patency, RR, SpO2: stable & adequate BP & HR: stable & adequate Hydration State: stable & adequate Neuraxial Anesthesia: was administered and sensory block is resolving Anesthetic Complications: no major complications apparent and Pt Satisfied with anesthetic care
--- NOTE | 2019-05-14 10:45 | Anesthesiology Progress Note ---
Date of Service May 14, 2019 Assessment & Plan (1) Encounter for pre-operative examination: Neuraxial Placement Date and time of procedure: 05/14/2019 Indication: SAB for hip surgery. Consent: Informed consent obtained from the patient or designated proxy. The inherent risks, expected benefits, treatment alternatives, as well as the technical aspects of the procedure were discussed with the patient and a full explanation was given. Patient was given the opportunity to ask questions, which were answered to their satisfaction. Time Out: A time-out was performed verifying correct patient with two identifiers, procedure, site, positioning, and special equipment (if needed). Monitors Attached: EKG BP Pulse Oximetry CO2 Prehydrated: [500]ml lactated ringers Position: Sitting Prep: Duraprep Sterile Drape Sterile procedures used Site: Midline L4-5 Local Skin Infiltration: [2] ml 1% lidocaine Neuraxial Technique: SAB Needle: 24g x 3.5 inch Sprotte Anesthetic: [3]ml 0.5% Bupivicaine Attempts: 1 Parasthesias: No CSF: Yes Blood: No Post Procedure: Patient tolerated the procedure well without apparent complications. Present on Admission?: No Physical Exam Vital Signs: Last Vital Signs Temp 36.3 C L 05/14/19 10:19 Pulse 70 05/14/19 10:19 Resp 16 05/14/19 10:19 BP 124/70 05/14/19 10:19 Pulse Ox 96 05/14/19 10:19 Constitutional: + obese ENMT: Mouth: + TMJ abnormality and + chipped teeth; no dentition abnormality Thyromental Distance: > or= 3.5 Finger Breadths Mallampati Class: III Neck: normal visual inspection Respiratory: normal respiratory effort Auscultation: lungs clear to auscultation bilaterally Cardiovascular: Rate/Rhythm: regular rate and regular rhythm Musculoskeletal: Spine: normal cervical ROM and no pain with cervical ROM Neurologic: moves all extremities Psychiatric: Orientation: alert and oriented x 3
[2019-05-14] MEDS: KETOROLAC 30 MG/ML VIAL IV SCH ×3 (11:51→23:35)
[2019-05-14] MEDS: CEFAZOLIN 2000MG 2,000 MG/15 ML SYR IV SCH ×2 (13:44→21:39)
[2019-05-14] MEDS: ACETAMINOPHEN 500 MG TAB PO SCH ×2 (13:44→21:39)
[2019-05-14] MEDS ORDERED: SENNA 8.6 MG TAB PO SCH (21:00)
[2019-05-14] MEDS: ASPIRIN 81 MG ECTAB PO SCH (21:39)
[2019-05-14] MEDS: DOCUSATE SODIUM 100 MG CAP PO SCH (21:39)
[2019-05-14] MEDS: OXYCODONE HCL IR 5 MG TAB (IMMEDIATE RELEASE) PO PRN (21:42)
[2019-05-15 05:42] LABS: Hematocrit (blood only) 35.2 % (42-52); Immature Granulocytes # (auto) 0.02 K/uL (0.00-0.02); Immature Granulocytes % (auto) 0.2 %; Lymphocytes # (auto) 1.21 K/uL (1.2-3.4); Lymphocytes % (auto) 11.7 %; Mean Corpuscular Hemoglobin 29.7 pg (25-34); Mean Corpuscular Hgb Conc 34.1 g/dL (32-36); Mean Corpuscular Volume 87.1 fL (80-100); Mean Platelet Volume 10.7 fL (7.4-10.4); Monocytes # (auto) 1.04 K/uL (0.11-0.59); Monocytes % (auto) 10.1 %; Neutrophils # (auto) 8.04 K/uL (1.4-6.5); Platelet Count 190 K/uL (130-400); RDW Coefficient of Variation 12.9 % (11.5-14.5); RDW Standard Deviation 41.8 fL (36.4-46.3); Red Blood Count 4.04 M/uL (4.7-6.1); White Blood Count 10.31 K/uL (4.8-10.8)
[2019-05-15] MEDS: KETOROLAC 30 MG/ML VIAL IV SCH (05:44)
[2019-05-15] MEDS: ACETAMINOPHEN 500 MG TAB PO SCH (05:44)
[2019-05-15 06:09] LABS: BUN Creatinine Ratio 19.2 (10-20); Calcium 8.7 mg/dl (8.5-10.1); Est GFR (African American) 118.7; Est GFR (Non-African American) 102.4; Potassium 4.2 mmol/L (3.5-5.1)
--- NOTE | 2019-05-15 07:52 | Orthopedic Progress Note ---
Date of Service May 15, 2019 Assessment & Plan (1) History of right hip replacement: Overall he is doing very well. Is not having much pain in the right hip. He will be seen by physical therapy this morning for ambulation and range of motion exercises. He is on aspirin for DVT prophylaxis. He can be discharged home later today. He will follow-up with orthopedics in 2 weeks. Present on Admission?: Yes Subjective Ed was seen and examined at bedside this morning. Overall is doing very well. Is not having much pain in the right hip. He has been up and ambulating to the bathroom. He has no complaints. Physical Exam Musculoskeletal: On physical examination of the right hip, the Emily VAC dressing is to suction. His leg lengths are equal. He has active dorsiflexion and plantarflexion of his right ankle. Sensation is intact throughout. Results & Data ([facility]) Vital Signs (Past 12 Hours) Vital Signs Temp Pulse Resp BP BP Pulse Ox 05/15/19 02:59 36.7 C 71 16 127/78 99 05/14/19 23:47 36.4 C L 76 16 126/77 98 Laboratory Results H & H 04/12/19 05/15/19 Range/Units 13:36 05:28 Hgb 13.1 L 12.0 L (14.0-18.0) g/dL Hct 38.5 L 35.2 L (42-52) % Coagulation 04/12/19 Range/Units 13:36 INR 1.1 (0.9-1.1) Diagnostic Findings Postoperative x-rays of the right hip show the prosthesis to be in anatomic alignment without any evidence of fracture, dislocation, or loosening. PG Care Time/CCT Total # of Minutes Spent Total Time Spent with Patient: Total time spent is greater than 50% in coordination of care (as documented) at patient's floor/unit and/or counseling patient: Coding Level of Care Code None Diagnoses History of right hip replacement Z96.641
--- NOTE | 2019-05-15 07:53 | Discharge Summary ---
Date of Service May 15, 2019 Admission HPI Per Admitting Provider Ed is a pleasant 53-year-old male who presented my office with complaints of bilateral hip pain. 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 He underwent a left anterior total hip arthroplasty 6 weeks ago. He did well with that. He is now prepared to proceed with a right hip replacement surgery. Principal Diagnosis Right total hip arthroplasty Discharge Data Allergies Allergy/AdvReac Type Severity Reaction Status Date / Time No Known Allergies Verified 05/14/19 05:34 Consultations 05/15/19 08:00 Consult Case Management - Discharge Planning Routine Procedures Performed Operation Date: 05/14/19 07:00 Actual Procedures p Right Anterior Total Hip Arthroplasty(Right) - Jake Lacy DO Ordered Studies 05/14/19 07:00 FL fluoroscopy <1hr Routine FL hip RT 1V Routine Hospital Course (1) History of right hip replacement: On May 14, 2019 Ed arrived at [facility] and underwent a right anterior total hip arthroplasty without complication. He had a spinal anesthetic. Postoperatively he was started on aspirin for DVT prophylaxis and discharged to general orthopedic floors. His hospital course was uneventful. On postop day #1 his H&H was stable and his pain was well controlled. He was able to participate well with physical therapy doing ambulation and range of motion exercises. He was then discharged to home. He will follow-up with orthopedics in 2 weeks. Total Time Total Time Spent Total Time Spent (In Minutes): 20 Discharge Plan Discharge Items Patient Disposition: Home - Home Health Services Reason For Visit: Right Hip Degenerative Joint Disease Discharge Diagnosis: Right total hip arthroplasty Activity: As commented below Non-emergency contact: Surgeon Call non-emergency contact if: your wound has increased redness and your wound has increased drainage Follow-up/Referrals: Patricia Jade D.O. [Primary Care Provider] - Diet: Regular Addtl Attending Provider Instructions: Activity and Therapy Recommendations: * If you are using [facility] then therapy will be provided at your home until they feel you have accomplished all of your goals. * If you are using [facility] then Physical Therapy will be provided until they feel you are ready to start Outpatient Physical Therapy. * If you are not using home therapy then Outpatient Physical Therapy should start about 3-5 days from your day of surgery. Therapy will last about 6-10 weeks * You were shown a series of exercises in the hospital. Do these exercises three times each day including the exercises you were shown in physical therapy. * Get up and walk several times each day.~ For the first four weeks, try not to stand or walk for more than one hour at a time. If you do stand or walk for more than one hour, you will not hurt anything, but your leg will likely swell.~~ * As you feel comfortable, you may change from the walker or crutches to a cane and~then to independent walking. Medications: * Narcotic You will likely be sent home from the hospital with a prescription for the narcotic pain medication that worked best throughout your stay. * Aspirin Most patients will be required to take Aspirin 81mg twice a day for 6 weeks after surgery. This is obtained [id number] and a prescription is not necessary. * Other medications may be prescribed for specific circumstances. If you have any questions, please call the office at . * Resume previous home medications unless otherwise instructed TEDs/Elastic Stockings: The white elastic stockings help limit swelling and prevent blood clots from forming in your legs. The more you wear them, the more they work. Wear them for six weeks. Dressing Care: You will likely have a purple VAC dressing after surgery. This dressing will keep the incision dry and promote early healing. After about 7 days the batteries will wear out and the VAC will lose suction. Simply remove the dressing at that time and throw everything away, including the small suction machine. Then, you may leave the ronald open to air or cover them with a dry dressing so they do not rub on your pants. The ronald will be removed at your 2 week follow-up appointment. Showering: You may shower immediately with the purple VAC dressing. Let the shower spray hit your opposite side and slowly pat the plastic dry. Do not soak the dressing. After the dressing is removed you may shower normally with the ronald exposed. Let soapy water run over the ronald and pat them dry. Things To Watch For: * Drainage from the incision site that occurs more than one week after your surgery. * Increased redness at the incision site. * Fever above 102 degrees Fahrenheit. * Unusual chest pain or shortness of breath. * [facility] at with any of the above problems Follow-Up Visit: Follow-up with Dr. Lacy 2-3 weeks after your day of surgery. An appointment was probably scheduled when you signed-up for surgery in the office. If you have any questions call Office Instructions: More detailed instructions as well as Frequently Asked Questions were provided in a folder by our office when you signed-up for surgery. Please review these instructions when you get home. If you have any further questions or concerns, please feel free to call the office at [phone] Pending Studies at Discharge: No Stand-Alone Forms: [facility], [facility] C[facility] Medications and DC Order Prescriptions: New aspirin 81 mg Tablet,Delayed Release (Dr/Ec) 81 mg PO BID Qty: 0 RF: 0 Continued multivitamin Tablet 1 tab PO QAM RF: 0 acetaminophen [Tylenol Extra Strength] 500 mg Tablet 1,000 mg PO QID PRN (Reason: Pain) RF: 0 duloxetine 60 mg Capsule,Delayed Release(Dr/Ec) 60 mg PO QAM RF: 0 cholecalciferol (vitamin D3) [Vitamin D3] 1,000 unit Tablet,Chewable 5,000 unit PO QAM RF: 0 naproxen sodium [Aleve] 220 mg Capsule 440 mg PO BID PRN (Reason: Pain) RF: 0 oxycodone 5 mg Tablet 5 mg PO Q4H PRN (Reason: pain) Qty: 30 RF: 0 Discharge Orders: Discharge Order (Routine); Ordered 05/15/19 Ordered By: Jake Lacy Admission Data Admit Date/Time: 05/14/19 09:21 Attending Provider: Jake Lacy Admit Provider: Jake Lacy Primary Care Provider: Patricia Jade Coding Level of Care Code D/C Day Management <30 mins Diagnoses History of right hip replacement Z96.641
[2019-05-15] MEDS ORDERED: dexAMETHasone 4 MG TAB PO SCH (08:00)
[2019-05-15] MEDS: DOCUSATE SODIUM 100 MG CAP PO SCH (08:43)
[2019-05-15] MEDS: ASPIRIN 81 MG ECTAB PO SCH (08:43)
[2019-05-15] MEDS ORDERED: MULTIVITAMIN TAB PO SCH (09:00)
[2019-05-15] MEDS ORDERED: DULOXETINE HCL 60 MG CAP PO SCH (09:00)
[2019-05-15] MEDS: OXYCODONE HCL IR 5 MG TAB (IMMEDIATE RELEASE) PO PRN (10:11)
== END 2019-05-15 10:26 | disposition home or self-care (01) ==
LOC: 3E 05:07 → ASU 05:07